=== PATIENT | female | born 1980 | race Two or more races ===

== ENCOUNTER 2018-01-11 21:20 | Emergency (ER) | payer MEDICAID ==
[~2018-01-11] VITALS: Ht 160 cm; Wt 122.0 kg
[~2018-01-11 21:20] MED LIST: ALBU8HFA PO; AZIT250T PO; CODE120S2 PO; NO HOME MEDS
[2018-01-11 21:29] VITALS: BP 176/107
[2018-01-11] MEDS ORDERED: ketorolac trometh inj. 60 MG/2 ML VIAL IM ONE (23:40)
== END 2018-01-11 23:51 | disposition home or self-care (01) ==
LOC: ER 21:21
DX: M25.512 Pain in left shoulder (principal); M19.012 Primary osteoarthritis, left shoulder; F41.9 Anxiety disorder, unspecified; G89.29 Other chronic pain; Z88.2 Allergy status to sulfonamides; Z88.1 Allergy status to other antibiotic agents; Z88.8 Allergy status to other drugs, medicaments and biological substances
CPT/HCPCS: 73030; 96372; 99284; J1885

== ENCOUNTER 2018-09-17 23:06 | Emergency (ER) | payer MEDICAID, OTHER ==
[~2018-09-17] VITALS: Ht 160 cm; Wt 126.5 kg
[2018-09-18 00:05] VITALS: BP 149/108
[2018-09-18] MEDS ORDERED: ketorolac tromethamine 15mg/ml inj. IM ONE (00:10)
== END 2018-09-18 00:27 | disposition home or self-care (01) ==
LOC: ER 23:07
DX: M26.622 Arthralgia of left temporomandibular joint (principal); G89.29 Other chronic pain; F41.9 Anxiety disorder, unspecified; R62.50 Unspecified lack of expected normal physiological development in childhood; Z88.1 Allergy status to other antibiotic agents; Z88.2 Allergy status to sulfonamides; Z88.8 Allergy status to other drugs, medicaments and biological substances; Z79.899 Other long term (current) drug therapy
CPT/HCPCS: 96372; 99283; J1885

== ENCOUNTER 2019-11-14 10:41 | Emergency (ER) | payer OTHER ==
[2019-11-14] MEDS ORDERED: ibuprofen 200mg tablet PO ONE (12:10)
[2019-11-14] MEDS ORDERED: proparacaine 0.5% ophthalmic drops 15ml RIGHTEYE ONE (12:10)
[2019-11-14] MEDS ORDERED: erythromycin ophthalmic ointment 1gm tube EACHEYE ONE (12:20)
[2019-11-14 12:59] VITALS: BP 150/109
--- NOTE | 2019-11-14 13:08 | NUR ---
Call to [facility] for case # [id number].
== END 2019-11-14 13:09 | disposition home or self-care (01) ==
LOC: ER 10:42
DX: S05.11XA Contusion of eyeball and orbital tissues, right eye, initial encounter (principal); G89.29 Other chronic pain; F41.9 Anxiety disorder, unspecified; Z88.1 Allergy status to other antibiotic agents; Z88.2 Allergy status to sulfonamides; Z88.8 Allergy status to other drugs, medicaments and biological substances; Z79.2 Long term (current) use of antibiotics; Z79.899 Other long term (current) drug therapy; Y04.2XXA Assault by strike against or bumped into by another person, initial encounter; Y93.89 Activity, other specified; Y92.89 Other specified places as the place of occurrence of the external cause; Y99.0 Civilian activity done for income or pay
CPT/HCPCS: 99284

== ENCOUNTER 2021-02-27 04:37 | Emergency (ER) | payer MEDICAID ==
[~2021-02-27] VITALS: Ht 160 cm; Wt 127.3 kg
[2021-02-27] MEDS ORDERED: acetaminophen 325mg tablet PO ONE (05:00)
[2021-02-27] MEDS ORDERED: amoxicillin 250mg capsule PO ONE (05:00)
[2021-02-27] MEDS ORDERED: ibuprofen tablet 400 MG TABLET PO ONE (05:00)
[2021-02-27] MEDS: metoclopramide 10mg tablet PO ONE ×2 (05:17→05:53)
[2021-02-27 05:51] LABS: BASOPHILS % (AUTO) 0.4 % (0-1); EOSINOPHILS # (AUTO) 0.1 X10'3 (0-0.9); EOSINOPHILS % (AUTO) 0.8 % (0-6); HEMATOCRIT 39.6 % (35.0-45.0); HEMOGLOBIN 13.4 g/dl (12.0-16.0); LYMPHOCYTES # (AUTO) 1.3 X10'3 (1.1-4.8); LYMPHOCYTES % (AUTO) 17.9 % (21-51); MEAN CORPUSCULAR HEMOGLOBIN 30.2 PG (27.0-31.0); MEAN CORPUSCULAR VOLUME 89.1 FL (78-98); MEAN PLATELET VOLUME 7.8 FL (7.4-10.4); MONOCYTES # (AUTO) 0.9 X10'3 (0-0.9); MONOCYTES % (AUTO) 11.5 % (2-12); NEUTROPHILS # (AUTO) 5.2 X10'3 (1.8-7.7); NEUTROPHILS % (AUTO) 69.4 % (42-75); PLATELET COUNT 192 X10'3 (140-440); RED BLOOD COUNT 4.44 X10'6 (4.20-5.60); RED CELL DISTRIBUTION WIDTH 12.9 % (11.5-14.5); WHITE BLOOD COUNT 7.5 X10'3 (4.5-11.0)
[2021-02-27] MEDS ORDERED: PROC-8 PO (06:06)
[2021-02-27] MEDS ORDERED: AMOX500C2 PO (06:06)
[2021-02-27 06:08] LABS: ALANINE AMINOTRANSFERASE 26 U/L (12-78); ALBUMIN 3.2 G/DL (3.4-5.0); ALBUMIN/GLOBULIN RATIO 0.8 (1.1-1.5); ALKALINE PHOSPHATASE 68 IU/L (46-116); ANION GAP 7 (8-16); ASPARTATE AMINO TRANSFERASE 15 U/L (10-37); BILIRUBIN,TOTAL 0.2 MG/DL (0.1-1.0); BLOOD UREA NITROGEN 6 MG/DL (7-18); BUN/CREATININE RATIO 7.9 (6.6-38.0); CALCIUM 8.4 MG/DL (8.5-10.1); CHLORIDE 105 MMOL/L (99-107); CREATININE 0.76 MG/DL (0.40-0.90); GLUCOSE 111 MG/DL (70-104); POTASSIUM 3.7 MMOL/L (3.5-5.1); SODIUM 138 MMOL/L (135-145); TOTAL CARBON DIOXIDE 26.4 MMOL/L (24-32); TOTAL PROTEIN 7.3 G/DL (6.4-8.2); eGFR 83 ML/MIN
[2021-02-27 06:11] LABS: BETA HCG,QUANTITATIVE < 1.0 mIU/ml; MAGNESIUM 1.9 MG/DL (1.5-2.4)
[2021-02-27 10:58] VITALS: BP 150/97
== END 2021-02-27 11:01 | disposition home or self-care (01) ==
LOC: ER 04:38
DX: R07.89 Other chest pain (principal); R05.9 Cough, unspecified; R06.02 Shortness of breath; H66.90 Otitis media, unspecified, unspecified ear; G89.29 Other chronic pain; F41.9 Anxiety disorder, unspecified; Z88.1 Allergy status to other antibiotic agents; Z88.8 Allergy status to other drugs, medicaments and biological substances; Z79.2 Long term (current) use of antibiotics; Z79.899 Other long term (current) drug therapy
CPT/HCPCS: 36415; 71045; 80053; 83735; 83880; 84484; 84702; 85025; 85379; 93005; 99285

== ENCOUNTER 2021-11-13 14:34 | Emergency (ER) | payer MEDICAID ==
[~2021-11-13] VITALS: Ht 160 cm; Wt 127.3 kg
[~2021-11-13 14:34] MED LIST changes: +PROC-8 PO
[2021-11-13 15:08] VITALS: BP 167/101
== END 2021-11-13 17:51 | disposition home or self-care (01) ==
LOC: ER 14:35
DX: M25.561 Pain in right knee (principal); M19.90 Unspecified osteoarthritis, unspecified site; G89.29 Other chronic pain; F41.9 Anxiety disorder, unspecified; F17.200 Nicotine dependence, unspecified, uncomplicated; Z88.8 Allergy status to other drugs, medicaments and biological substances; Z88.1 Allergy status to other antibiotic agents; Z79.2 Long term (current) use of antibiotics; Z79.899 Other long term (current) drug therapy
CPT/HCPCS: 73564; 99283; A6449

== ENCOUNTER 2022-04-18 17:16 | Emergency (ER) | payer MEDICAID ==
[~2022-04-18] VITALS: Ht 160 cm; Wt 134.0 kg
[2022-04-18 17:28] VITALS: BP 180/111
--- NOTE | 2022-04-18 18:23 | NUR ---
made aware about this patient.No stroke alert at this time.
== END 2022-04-18 19:46 | disposition left against medical advice (07) ==
LOC: ER 17:17
DX: R05.9 Cough, unspecified (principal); R53.1 Weakness; Z53.21 Procedure and treatment not carried out due to patient leaving prior to being seen by health care provider
CPT/HCPCS: 99281

== ENCOUNTER 2022-04-27 12:48 | Emergency (ER) | payer MEDICAID ==
[~2022-04-27] VITALS: Ht 157.5 cm; Wt 136.2 kg
[2022-04-27 12:49] VITALS: BP 180/87
== END 2022-04-27 20:25 | disposition left against medical advice (07) ==
LOC: ER 12:48
DX: R10.9 Unspecified abdominal pain (principal); M54.9 Dorsalgia, unspecified; Z53.21 Procedure and treatment not carried out due to patient leaving prior to being seen by health care provider
CPT/HCPCS: 99281

== ENCOUNTER 2025-01-29 05:37 | Emergency (ER) | payer MEDICAID ==
[~2025-01-29] VITALS: Ht 160 cm; Wt 134.9 kg
--- NOTE | 2025-01-29 05:49 | ELECTROCARDIOGRAPH REPORT ---
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 Tripp Porras Measurements Intervals Walters Rate: 112 P: 52 TN: 122 QRS: 14 QRSD: 101 T: 49 QT: 347 QTc: 474 Interpretive Statements Sinus tachycardia Electronically Signed On 01-30-2025 21:14:[address] Tripp Porras Please click the below link to view image of tracing.
--- NOTE | 2025-01-29 06:49 | RADIOLOGY REPORT ---
CHEST RADIOGRAPH INDICATION: CP TECHNIQUE: Single frontal view of the chest was obtained COMPARISON: CHEST,SINGLE VIEW on DOS: 02/27/21 FINDINGS: Lines and Tubes: None Lungs: No focal consolidation. Pleura: No effusion. No pneumothorax. Cardiomediastinal contours: Unremarkable Bones: No acute osseous abnormality. IMPRESSION: 1. No acute cardiopulmonary disease.
--- NOTE | 2025-01-29 07:33 | Physician Documentation ---
History of Present Illness General Chief Complaint: Shortness of Breath Stated Complaint: FLY SYMPTOMS Time Seen by MD: 07:03 Primary Medical Doctor: JENNIFER History of Present Illness Initial Comments 44 year old female presents to the emergency department for complaints of cold cough and congestion that has been present for two days. She states that she has been experiencing a productive cough, fevers, body aches, and a headache. Additionally she complains of excessive tiredness. She states that she has been taking Muscenex for her symptoms. Medication Reconciliation Allergies: Coded Allergies: ondansetron HCl (Verified Allergy, Intermediate, SEVERE ITCHING, 02/27/21) Cephalexin Monohydrate (Verified Allergy, Unknown, 02/27/21) prednisone (Verified Allergy, Unknown, 02/27/21) sulfamethoxazole (Unverified Adverse Reaction, Unknown, 02/27/21) N/V trimethoprim (Unverified Adverse Reaction, Unknown, 02/27/21) N/V Uncoded Allergies: Lactose intolerant (Adverse Reaction, Unknown, 03/16/12) Scheduled Albuterol Sulfate (Ventolin Hfa), 2 PUFFS INH Q4HPRN Azithromycin (Zithromax), 1 DOSPAK PO UD Azithromycin (Zithromax), 1 TAB PO DAILY Codeine/Promethazine Hcl (Promethazine-Codeine Syrup), 1 TSP PO QID Prochlorperazine Maleate (Compazine), 1 TAB PO Q6H Scheduled PRN albuterol inhaler (Pro-Air Inhaler), 1-2 PUFFS PO Q4H PRN for SOB or wheezing Miscellaneous Medications Home Med List (No Home Medications), (Reported) Past Medical History Past Medical History: Hemorrhoids, Arthritis, Chronic Pain, Anxiety Past Surgical History: no surgical history Smoking: Quit less than 1 year Alcohol Use: None Drug Use: none Lives with: S/O, Family Lives In: Home Occupation: 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 All other systems are negative other than those mentioned above. Physical Exam Physical Exam Vital Signs: RN Vital Signs have been reviewed: Yes, Temperature: 99.3, Source: Oral, Heart Rate: 116, Respiratory Rate: 24, BP: 195/115, Pulse Oximetry: 95, Weight: 134.900 Oxygen Flow Rate: 0 Pulse Oximetry Reflects: adequate oxygenation Physical Exam VITALS: Reviewed and as above. GENERAL: Alert, no apparent distress. HEENT: Normocephalic, atraumatic. PERRL, EOMI. Dry mucosa, no erythema. RESPIRATORY: Slight rhonchi appreciated. CHEST: No accessory muscle use, no retractions. CV: Regular rate and rhythm. No edema, no murmur, No: JVD GI: Soft, non-tender, bowel sounds present. No rebound, guarding, or rigidity. BACK: No CVA tenderness, no swelling. MUSCULOSKELETAL: No deformities, no edema SKIN: Warm and dry, no rash. NEURO: Oriented x4. No motor or sensory deficit. PSYCH: Normal mood and affect, no agitation. Progress Results/Orders Results/Orders Medications Received in ER Medications (Trade) Dose Ordered Sig/Nicholas Route PRN Reason Start Time Stop Time Status Last Admin Dose Admin (Tylenol tablet) 1,000 mg ONCE ONCE PO 01/29/25 07:55 01/29/25 07:58 DC 01/29/25 08:20 1,000 MG Vital Signs 01/29/25 01/29/25 01/29/25 05:39 07:48 07:51 Temp 99.3 100.6 Pulse 116 104 Resp 24 17 17 B/P (MAP) 195/115 150/85 (106) Pulse Ox 95 95 O2 Flow Rate 0 Laboratory Tests Test 01/29/25 07:40 01/29/25 07:43 01/29/25 09:19 Influenza Type A Antigen Negative Influenza Type B Antigen Negative White Blood Count 9.4 Red Blood Count 4.50 Hemoglobin 13.3 Hematocrit 40.0 Mean Corpuscular Volume 88.9 Mean Corpuscular Hemoglobin 29.6 Mean Corpuscular Hemoglobin Concent 33.3 Red Cell Distribution Width 13.2 Platelet Count 224 Mean Platelet Volume 8.0 Neutrophils (%) (Auto) 79.4 H Lymphocytes (%) (Auto) 13.1 L Monocytes (%) (Auto) 6.1 Eosinophils (%) (Auto) 1.0 Basophils (%) (Auto) 0.4 Neutrophils # (Auto) 7.5 Lymphocytes # (Auto) 1.2 Monocytes # (Auto) 0.6 Eosinophils # (Auto) 0.1 Basophils # (Auto) 0.0 CBC Comment Sodium Level 140 Potassium Level 4.0 Chloride Level 106 Carbon Dioxide Level 26.1 Anion Gap 8 Blood Urea Nitrogen 7 Creatinine 0.71 Estimated GFR/1.73 m2 89 BUN/Creatinine Ratio 9.9 L Glucose Level 109 H Calcium Level 8.7 Troponin I High Sensitivity 5 Pro-B-Type Natriuretic Peptide 129 H Albumin 3.1 L Chemistry Comments EKG/XRAY/CT/US/VASC/MRI EKG : Additional Comment *The monitoring engineer interpreted Sinus Tach on exam while giving an exam. 0543: [facility] interpreted EKG to reveal sinus tachycardia at a rate of [address] elevation or depression. Chest X-Ray : Interpreted By: self, radiologist Views: 1 VIEW Additional Comments [facility] interpreted the 1-view chest x-ray to show normal heart size, no infiltrates, no effusion, no pneumothorax. With normal mediastinum. CHEST RADIOGRAPH INDICATION: CP TECHNIQUE: Single frontal view of the chest was obtained COMPARISON: CHEST,SINGLE VIEW on DOS: 02/27/21 FINDINGS: Lines and Tubes: None Lungs: No focal consolidation. Pleura: No effusion. No pneumothorax. Cardiomediastinal contours: Unremarkable Bones: No acute osseous abnormality. IMPRESSION: 1. No acute cardiopulmonary disease. Electronically Signed by:MORELIA FAITH MD Date & Time: 01/29/2547 Departure Time of Disposition: 09:21 Disposition: 01 HOME / SELF CARE / HOMELESS Impression: Primary Impression: Bronchitis Condition: Stable Discharge Instructions: Bronchitis Referrals: NO PRIMARY CARE PROVIDER (PCP) Prescriptions Albuterol Sulfate (Ventolin Hfa) 90 Mcg Hfa.aer.ad 2 PUFFS INH Q4HPRN, #1 INHALER Prov: CECE MEZA MD 01/29/25 Azithromycin (Zithromax) 250 Mg Tablet 1 TAB PO DAILY, #6 TAB azithromycin z pack as directed in packaging Prov: CECE MEZA MD 01/29/25 Education Educated: Patient Educated regarding: diagnosis, treatment, prognosis Signature Scribe Signature: Scribed for Cece Meza MD by Karan Stapleton . 01/29/25 07:37 CECE MEZA MD Jan 29, 2025 07:33 KARAN KEVIN Jan 29, 2025 07:37
[2025-01-29 07:55] LABS: MEAN PLATELET VOLUME 8.0 FL (7.4-10.4); RED CELL DISTRIBUTION WIDTH 13.2 % (11.5-14.5)
[2025-01-29 08:52] LABS: INFLUENZA TYPE A ANTIGEN RAPID NEGATIVE (Negative); INFLUENZA TYPE B ANTIGEN RAPID NEGATIVE (Negative)
[2025-01-29 09:01] LABS: CREATININE 0.71 MG/DL (0.40-0.90); PRO BRAIN NATRIURETIC PEPTIDE 129 PG/ML (0-125); TOTAL CARBON DIOXIDE 26.1 MMOL/L (24-32); eCRCL 82 ML/MIN; eGFR 89 ML/MIN
[2025-01-29] MEDS ORDERED: ALBU18HF2 INH (09:20)
[2025-01-29] MEDS ORDERED: AZIT-164 PO (09:20)
[2025-01-29 09:48] VITALS: BP 123/62; PULSE 104; RESP 18; TEMP 99.1; O2SAT 94
== END 2025-01-29 10:00 | disposition home or self-care (01) ==
LOC: ER 05:38
DX: J40 Bronchitis, not specified as acute or chronic (principal); G89.29 Other chronic pain; F41.9 Anxiety disorder, unspecified; M19.90 Unspecified osteoarthritis, unspecified site; R06.02 Shortness of breath; Z87.19 Personal history of other diseases of the digestive system; Z88.1 Allergy status to other antibiotic agents; Z88.2 Allergy status to sulfonamides; Z88.8 Allergy status to other drugs, medicaments and biological substances; Z79.899 Other long term (current) drug therapy
CPT/HCPCS: 36415; 71045; 80048; 83880; 84484; 85025; 87804; 93005; 99285